=== PATIENT | female | born 1965 | race Caucasian/White ===

== ENCOUNTER 2019-11-14 18:49 | Observation (INO) ==
[2019-11-14] MEDS ORDERED: Nitroglycerin 0.4 MG TAB.SUBL SL PRN (19:35)
[2019-11-14 20:11] LABS: Basophils % 0.3 %; Eosinophils # 0.2 K/mcL (0.0-0.6); Eosinophils % 1.8 %; Hematocrit 39.5 % (35.3-44.9); Hemoglobin 12.8 g/dL (11.5-15.4); Immature Granulocytes % 0.3 % (0-4); Lymphocytes % 20.8 %; Mean Corpuscular HGB Conc 32.4 g/dL (31.6-35.5); Mean Corpuscular Hemoglobin 28.6 pg (28.0-33.3); Mean Corpuscular Volume 88.2 fL (83.0-100.0); Mean Platelet Volume 10.4 fL (9.4-12.4); Monocytes # 0.6 K/mcL (0.0-1.3); Neutrophils # 6.8 K/mcL (1.6-8.9); Platelet Count 254 K/mcL (140-400); Red Blood Count 4.48 M/mcL (3.82-4.97); Red Cell Distribution Width 14.3 % (11.5-14.5); Segmented Neutrophils % 70.8 %; White Blood Count 9.6 K/mcL (4.3-11.1)
[2019-11-14 20:22] LABS: INR 1.1; Prothrombin Time 12.4 Seconds (9.4-12.1)
[2019-11-14 20:25] LABS: Activated Partial Thrombo Time 30.8 Seconds (26.0-36.0)
[2019-11-14 20:32] LABS: Alanine Aminotransferase 9 Units/L (7-52); Albumin 3.8 g/dL (3.5-5.7); Albumin/Globulin Ratio 1.3 (1.1-2.2); Alkaline Phosphatase 86 Units/L (34-104); Aspartate Amino Transferase 10 Units/L (13-39); BUN/Creatinine Ratio 17 (6-26); Bilirubin,Indirect 0.3 mg/dL (0.0-1.0); Bilirubin,Total 0.3 mg/dL (0.3-1.0); Blood Urea Nitrogen 15 mg/dL (6-20); Calcium 9.1 mg/dL (8.6-10.3); Carbon Dioxide 28 mEq/L (23-29); Chloride 103 mEq/L (98-107); Globulin 2.9 g/dL (2.4-3.5); Glucose 101 mg/dL (70-105); Osmolality,Calculated 287 (280-300); Potassium 3.9 mEq/L (3.5-5.1); Sodium 138 mEq/L (136-145); Total Protein 6.7 g/dL (6.4-8.9); Troponin I < 0.03 ng/mL (< 0.04); eGFR For African Americans > 60 (> 60); eGFR For Non-African Americans > 60 (> 60)
[2019-11-14] MEDS ORDERED: Isovue-370 500 ML BOTTLE IVP ONE (22:08)
[2019-11-15] MEDS ORDERED: Naloxone 0.4 MG/ML INJ IVP PRN (01:10)
[2019-11-15] MEDS ORDERED: SUMAtriptan succinate 50 MG TABLET PO PRN (01:12)
[2019-11-15] MEDS ORDERED: Ondansetron ODT 4 MG TAB.RAPDIS SL PRN (01:12)
[2019-11-15 02:06] LABS: Basophils % 0.5 %; Eosinophils # 0.2 K/mcL (0.0-0.6); Eosinophils % 2.2 %; Hematocrit 37.6 % (35.3-44.9); Hemoglobin 11.7 g/dL (11.5-15.4); Immature Granulocytes % 0.1 % (0-4); Lymphocytes # 1.9 K/mcL (0.6-4.6); Lymphocytes % 22.1 %; Mean Corpuscular HGB Conc 31.1 g/dL (31.6-35.5); Mean Corpuscular Hemoglobin 28.6 pg (28.0-33.3); Mean Corpuscular Volume 91.9 fL (83.0-100.0); Mean Platelet Volume 10.5 fL (9.4-12.4); Monocytes # 0.5 K/mcL (0.0-1.3); Platelet Count 234 K/mcL (140-400); Red Blood Count 4.09 M/mcL (3.82-4.97); Red Cell Distribution Width 14.2 % (11.5-14.5); Segmented Neutrophils % 69.1 %; White Blood Count 8.6 K/mcL (4.3-11.1)
[2019-11-15 02:11] LABS: Prothrombin Time 11.8 Seconds (9.4-12.1)
[2019-11-15 02:13] LABS: Activated Partial Thrombo Time 29.4 Seconds (26.0-36.0)
[2019-11-15 02:33] LABS: Alanine Aminotransferase 7 Units/L (7-52); Albumin 3.6 g/dL (3.5-5.7); Albumin/Globulin Ratio 1.3 (1.1-2.2); Alkaline Phosphatase 86 Units/L (34-104); Aspartate Amino Transferase 10 Units/L (13-39); BUN/Creatinine Ratio 17 (6-26); Bilirubin,Total 0.3 mg/dL (0.3-1.0); Blood Urea Nitrogen 14 mg/dL (6-20); Calcium 9.1 mg/dL (8.6-10.3); Carbon Dioxide 28 mEq/L (23-29); Chloride 102 mEq/L (98-107); Globulin 2.7 g/dL (2.4-3.5); Glucose 84 mg/dL (70-105); Osmolality,Calculated 282 (280-300); Potassium 4.2 mEq/L (3.5-5.1); Sodium 136 mEq/L (136-145); Total Protein 6.3 g/dL (6.4-8.9); eGFR For African Americans > 60 (> 60); eGFR For Non-African Americans > 60 (> 60)
[2019-11-15 02:34] LABS: Chol/HDL Ratio 3.8 (0-4.9)
[2019-11-15] MEDS: Apixaban 2.5 MG TABLET PO SCH ×2 (03:22→13:49)
[2019-11-15] MEDS ORDERED: Levothyroxine 25 MCG TABLET PO SCH (06:30)
[2019-11-15] MEDS ORDERED: Regadenoson 0.4 MG/5 ML SYRINGE IVP ONE (07:40)
[2019-11-15] MEDS ORDERED: Pregabalin 75 MG CAPSULE PO SCH (09:00)
[2019-11-15] MEDS ORDERED: Lisinopril 20 MG TABLET PO SCH (09:00)
[2019-11-15] MEDS ORDERED: Diltiazem CD (24hr) 120 MG CAPSULE PO SCH (09:00)
[2019-11-15 12:13] VITALS: BP 115/77
== END 2019-11-15 15:09 | disposition home or self-care (01) ==
LOC: EMEROOARM 18:49 → 2NENU 18:49 → SUATTDRO 22:17 → 2NENU 22:56
PROVIDERS: ADMIT Internal Medicine; ATTEND Family Medicine